=== PATIENT | male | born 1990 | race Caucasian/White ===

== ENCOUNTER 2018-03-08 16:38 | Outpatient (CLI) | payer BC ==
--- NOTE | 2018-03-08 17:13 | RAD ---
THORACIC SPINE THREE VIEWS: 03/08/18 HISTORY: Mid back pain. COMPARISON: None. FINDINGS: Incidental gastric lap band is noted. Mild degenerative changes throughout the mid to lower thoracic spine with loss of disc space height a nd osteophyte formation. No fracture. No malalignment. A limited evaluation of the upper thoracic spi ne lateral projection. IMPRESSION: Mild degenerative changes as defined above. POS: [facility]
--- NOTE | 2018-03-08 17:15 | RAD ---
LUMBAR SPINE THREE VIEWS: 03/08/18 HISTORY: Chronic mid low back pain. COMPARISON: None. FINDINGS: There are five lumbar type vertebral bodies. Vertebral body heights is maintained. No fracture. Grade I retrolisthesis of L1 upon L2, L2 upon L3, L3 upon L4, L4 upon L5 and L5 upon S1. No associated spo ndylolysis. Disc space heights are preserved. IMPRESSION: Grade I retrolisthesis throughout the lumbar spine. No significant loss of disc space height. Conside r MRI. POS: [facility]
== END 2018-03-08 16:39 | disposition home or self-care (01) ==
LOC: RAD 16:38
PROVIDERS: ATTEND Chiropractor
DX: M54.5 Low back pain (principal); M53.86 Other specified dorsopathies, lumbar region; M79.1 Myalgia; G89.29 Other chronic pain; M43.16 Spondylolisthesis, lumbar region; M47.894 Other spondylosis, thoracic region
CPT/HCPCS: 72072; 72100

== ENCOUNTER 2018-04-08 13:03 | Outpatient (CLI) | payer BC ==
--- NOTE | 2018-04-08 14:41 | MRI ---
LUMBAR SPINE MRI WITHOUT CONTRAST: HISTORY: Lumbar spondylosis. Lumbar radiculopathy. COMPARISON: None. TECHNIQUE: A lumbar spine MRI is performed without intravenous Gadolinium administration. Multisequential, mult iplanar imaging was performed. FINDINGS: Appropriate T1 marrow signal intensity of the lumbar vertebrae. Lumbar spine vertebral body height i s maintained. No fracture. No significant STIR hyperintensity to suggest vertebral body edema or li gamentous injury. Conus medullaris terminates at the mid to upper aspect of L1. Symmetric signal intensity of the psoas muscles. Appropriate signal intensity of the visualized negro d organs. T12-L1: Adequate disk hydration. No significant central canal stenosis or foraminal narrowing. L1-L2: Adequate disk hydration. No significant central canal stenosis or foraminal narrowing. L2-L3: There is desiccation with mild loss of disk space height. There is a generalized disk bulge without significant central canal stenosis. Neural foramina are patent bilaterally. L3-L4: Adequate disk hydration. No significant posterior disk abnormality. No significant central canal stenosis. Foraminal narrowing. L4-L5: Adequate disk hydration. Minimal central disk bulge. No significant central canal stenosis. Neural foramen are patent. Nonspecific fluid in both intraarticular facet joints. Mild bilateral facet hypertrophy. L5-S1: Adequate disk hydration. No significant central canal stenosis. Neural foramina are patent. There is mild bilateral facet hypertrophy with fluid in both facet joints. Neural foramen are ornelas nt bilaterally. IMPRESSION: Degenerative change of the lumbar spine as above. No high-grade central canal stenosis or significan t foraminal narrowing. There is desiccation with mild loss of disk space height at L2-L3. POS: [facility]
== END 2018-04-08 13:04 | disposition home or self-care (01) ==
LOC: TBSIIMAG 13:03
PROVIDERS: ATTEND Chiropractor
DX: M47.26 Other spondylosis with radiculopathy, lumbar region (principal)
CPT/HCPCS: 72148